=== PATIENT | female | born 1985 | race Caucasian/White ===

== ENCOUNTER 2022-11-22 11:14 | Emergency (ER) | payer OTHER, SELFPAY ==
[2022-11-22 11:25] VITALS: BP 130/82; PULSE 107; RESP 16; TEMP 36.4; O2SAT 100
--- NOTE | 2022-11-22 12:07 | ED.GENADULT ---
HPI - General Adult General Chief complaint: Upper Respiratory Infection Stated complaint: sinus infection Source: patient Mode of arrival: ambulatory Limitations: no limitations History of Present Illness HPI narrative: Patient presents for evaluation of sick symptoms for last 4 days. Symptoms include sinus congestion, left-sided otalgia of, and productive cough of yellow sputum. No fever, chills, nausea, vomiting. No recent sick contacts to her knowledge. She smokes 1/3 ppd. She has been taking tylenol and zyrtec for her symptoms. No additional complaints or concerns. Related Data Allergies Allergy/AdvReac Type Severity Reaction Status Date / Time No Known Allergies Allergy Verified 11/22/22 11:42 Review of Systems Review of Systems: CONSTITUTIONAL: Denies fever, chills, or sweats. EYES: Denies visual changes, redness, or discharge. ENT: Reports left sided otalgia and sinus congestion. Denies sore throat CARDIOVASCULAR: Denies chest pain, palpitations, or edema. RESPIRATORY: Reports productive cough of yellow sputum. Denies SOB GASTROINTESTINAL: Denies abdominal pain, nausea, vomiting, or diarrhea. GENITOURINARY: Denies dysuria or hematuria. SKIN: Denies rash or itching. MUSCULOSKELETAL: Denies back pain, joint pain, or myalgia. NEUROLOGIC: Reports headache. Denies numbness, dizziness, or weakness. PSYCHIATRIC: Denies anxiety or depression. PMFSH Past Medical History Medical History No pertinent past medical history Surgical History Surgical History No pertinent past surgical history Family History Family History Mother Family history non-contributory Social History Social History Smoking packs per day: 0.3 Smoking cigarettes per day: 6.0 Smoking status: Current every day smoker Substance use: never Gender identity (if verbalized by the patient): Female Spiritual care concerns: No Exam Narrative: GENERAL: Well-appearing, well-nourished, and in no acute distress. HEAD: Normocephalic, atraumatic. EYES: PERRLA and EOMI. ENT: Nares clear, no rhinorrhea or epistaxis. Mucous membranes moist. Oropharynx without tonsillar hypertrophy exudate or other lesions. Bilateral tympanic membrane erythema. There is yellow exudate behind left TM. Left tympanic membrane is bulging NECK: Supple. No adenopathy or masses. No carotid bruits or JVD CHEST: Clear to auscultation. No respiratory distress. No wheezes rales or rhonchi HEART: Regular rate and rhythm. No murmur heard. Normal peripheral pulses. ABDOMEN: Soft, nontender, nondistended, normal active bowel sounds. EXTREMITIES: Normal range of motion. No edema. SKIN: Warm, dry, no rash. NEURO: No focal deficits. Alert and oriented x3. PSYCH: Normal mood and affect. Course Course Emergency Course: This is a 36-year-old female who presented for evaluation of sick symptoms. She has evidence of otitis media on exam. Likely tobacco use is contributing factor. Advised on smoking cessation. Will discharge with Augmentin. Follow up with primary doctor. Go to ER for worsening symptoms. Pt in agreement with plan of care. Level of Care: Express Care Visit Vital Signs Vital signs: Vital Signs Temperature 36.4 C L 11/22/22 11:25 Pulse Rate 107 H 11/22/22 11:25 Respiratory Rate 16 11/22/22 11:25 Blood Pressure 130/82 11/22/22 11:25 Pulse Oximetry 100 11/22/22 11:25 Oxygen Delivery Room Air 11/22/22 11:25 Temperature 36.4 C L 11/22/22 11:25 Pulse Rate 107 H 11/22/22 11:25 Respiratory Rate 16 11/22/22 11:25 Blood Pressure 130/82 11/22/22 11:25 Pulse Oximetry 100 11/22/22 11:25 Oxygen Delivery Room Air 11/22/22 11:25 Medical Decision Making Vital Signs Ernestine
== END 2022-11-22 12:10 | disposition home or self-care (01) ==
PROVIDERS: Emergency Provider Nurse Practitioner
DX: H66.92 Otitis media, unspecified, left ear (principal); F17.210 Nicotine dependence, cigarettes, uncomplicated
CPT/HCPCS: 99213; G0463